=== PATIENT | male | born 1985 | race Two or more races ===

== ENCOUNTER 2022-08-08 08:43 | Emergency (ER) | payer SELFPAY ==
[~2022-08-08] VITALS: Ht 170.2 cm; Wt 82.0 kg
[2022-08-08] MEDS ORDERED: ACETAMINOPHEN 500 MG TAB PO ONE (09:00)
[2022-08-08 09:04] VITALS: BP 132/65
[2022-08-08] MEDS ORDERED: GABA100C9 PO (09:29)
== END 2022-08-08 10:12 | disposition home or self-care (01) ==
LOC: ER 08:43
DX: M54.32 Sciatica, left side (principal)
CPT/HCPCS: 72100